=== PATIENT | female | born 1995 | race Two or more races ===

== ENCOUNTER → 2024-07-03 | Outpatient (CLI) | payer OTHER | END | disposition home or self-care (01) | LOC: PRENATAL 09:40 | PROVIDERS: ATTEND Obstetrics & Gynecology Maternal & Fetal Medicine | DX: Z36.82 Encounter for antenatal screening for nuchal translucency (principal); Z14.8 Genetic carrier of other disease; Z3A.12 12 weeks gestation of pregnancy ==

== ENCOUNTER 2024-08-27 07:49 | Outpatient (CLI) | payer OTHER | END 2024-08-27 07:50 | disposition home or self-care (01) | LOC: PRENATAL 07:49 | PROVIDERS: ATTEND Obstetrics & Gynecology Maternal & Fetal Medicine | DX: O44.00 Complete placenta previa NOS or without hemorrhage, unspecified trimester (principal); O43.90 Unspecified placental disorder, unspecified trimester; Z3A.20 20 weeks gestation of pregnancy ==

== ENCOUNTER 2024-10-22 10:30 | Outpatient (CLI) | payer OTHER | END 2024-10-22 10:38 | disposition home or self-care (01) | LOC: PRENATAL 10:30 | PROVIDERS: ATTEND Obstetrics & Gynecology Maternal & Fetal Medicine | DX: O26.849 Uterine size-date discrepancy, unspecified trimester (principal); O43.90 Unspecified placental disorder, unspecified trimester; O99.019 Anemia complicating pregnancy, unspecified trimester; Z3A.27 27 weeks gestation of pregnancy ==

== ENCOUNTER 2025-01-13 04:26 | Inpatient (IN) | payer OTHER ==
[2025-01-13] VITALS (8 sets, daily range): BP systolic 81–116; BP diastolic 50–74
[~2025-01-13] VITALS: Ht 160 cm; Wt 84.8 kg
[2025-01-13] MEDS ORDERED: AMPICILLIN SODIUM 2,000 MG VIAL IV STA (04:37)
[2025-01-13] MEDS ORDERED: RINGERS SOLUTION,LACTATED 1,000 ML IV SCH (04:45)
[2025-01-13] MEDS ORDERED: PEPCID AC20 MG PO (04:47)
[2025-01-13] MEDS ORDERED: PR NATAL 400 C1 EACH PO (04:47)
[2025-01-13 05:33] LABS: URINE APPEARANCE Turbid; URINE BILIRRUBIN Negative (NEGATIVE); URINE BLOOD Large; URINE COLOR Dark Yellow; URINE GLUCOSE Negative (NEGATIVE); URINE KETONE Trace (NEGATIVE); URINE LEUKOCYTE Moderate; URINE NITRATE Negative; URINE PROTEIN Trace (NEGATIVE); URINE UROBILINOGEN 1.0 E.U./dl
[2025-01-13 05:37] LABS: URINE EPITHELIAL CELLS 155.8 uL (0.0-38.8); URINE RBC 291.8 uL (0.0-20.8); URINE WBC 197.9 uL (0.0-23.2)
[2025-01-13 05:51] LABS: INR 0.97
[2025-01-13 06:03] LABS: URINE CAST 0.58 uL (0.0-1.40)
[2025-01-13 06:17] LABS: BASO % 0.3 % (0.1-1.2); EOS # 0.08 (0.04-0.54); EOS % 0.9 % (0.7-7.0); LYMPH # 1.63 (1.18-3.74); LYMPH % 18.2 % (19.3-53.1); MEAN PLATELET VOLUME 12.20 fl (9.4-12.4); MONO # 0.64 (0.24-0.82); MONO % 7.1 % (4.7-12.5); NEUT # 6.54 (1.56-6.13); NEUT % 73.1 % (34.0-71.1); RED CELL DISTRIBUTION WIDTH 14.1 % (11.6-14.4)
[2025-01-13] MEDS ORDERED: OXYTOCIN 500 ML IV SCH (07:15)
[2025-01-13] MEDS ORDERED: MORPHINE SULFATE 4 MG/ML CARTRIDGE IV ONE (07:15)
[2025-01-13] MEDS ORDERED: AMPICILLIN SODIUM 1,000 MG VIAL IV SCH (09:00)
[2025-01-13] MEDS ORDERED: ONDANSETRON HCL 2 MG/ML VIAL IV ONE (10:15)
[2025-01-13] MEDS ORDERED: ERYTHROMYCIN BASE OPHT 1GM EACH TUBE OP ONE (16:30)
[2025-01-13] MEDS ORDERED: OXYTOCIN 1,000 ML IV SCH (16:30)
[2025-01-13] MEDS ORDERED: CHLORHEXIDINE GLUCONATE 120 ML BOTTLE TOP ONE (16:30)
[2025-01-13 21:11] LABS: BASO % 0.1 % (0.1-1.2); EOS # 0.00 (0.04-0.54); EOS % 0.0 % (0.7-7.0); LYMPH # 1.31 (1.18-3.74); LYMPH % 5.9 % (19.3-53.1); MEAN PLATELET VOLUME 12.20 fl (9.4-12.4); MONO # 1.57 (0.24-0.82); MONO % 7.1 % (4.7-12.5); NEUT # 18.97 (1.56-6.13); NEUT % 86.2 % (34.0-71.1); RED CELL DISTRIBUTION WIDTH 14.1 % (11.6-14.4)
[2025-01-14 00:51] VITALS: BP 94/60
[2025-01-14 08:10] VITALS: BP 96/60
[2025-01-14] MEDS ORDERED: PNV,CALCIUM 72/IRON/FOLIC ACID 1 TAB TABLET PO SCH (09:00)
[2025-01-14 15:10] VITALS: BP 103/66
[2025-01-15 00:36] VITALS: BP 96/61
[2025-01-15 05:48] VITALS: BP 102/65
[2025-01-15 08:05] VITALS: BP 102/69
== END 2025-01-15 12:56 | disposition home or self-care (01) | DRG 807 ==
LOC: OB/GYN 04:26 → LDR 04:26 → OB/GYN 15:45
PROVIDERS: Specialist; ADMIT Obstetrics & Gynecology; ATTEND Obstetrics & Gynecology
PROC: 10E0XZZ Delivery of Products of Conception, External Approach (ICD-10-PCS; principal; 2025-01-13)
PROC: 0UQG7ZZ Repair Vagina, Via Natural or Artificial Opening (ICD-10-PCS; 2025-01-13)
PROC: 4A1HXCZ Monitoring of Products of Conception, Cardiac Rate, External Approach (ICD-10-PCS; 2025-01-13)
DX: O71.4 Obstetric high vaginal laceration alone (principal); Z37.0 Single live birth; Z3A.40 40 weeks gestation of pregnancy